=== PATIENT | male | born 1995 | race Caucasian/White ===

== ENCOUNTER 2019-02-11 17:16 | Emergency (ER) | payer OTHER ==
[2019-02-11 17:25] VITALS: BP 143/90
--- NOTE | 2019-02-11 17:51 | EDPHY ---
H & P Stated Complaint: wheezing, recent dx w/bronchitis Time Seen by Provider: 02/11/19 17:38 HPI/ROS: HPI: This is a 23-year-old male who presents with Chief Complaint: Wheezing, recent diagnosis around bronchitis Location: Chest Quality: Wheezing Duration: 1 week ago Signs and Symptoms: no shortness of breath at rest, no shortness of breath on exertion, no cough, no chest pain, no palpitations, no lower extremity edema, no wheezing, no orthopnea, no paroxysmal nocturnal dyspnea, no fever, no injury/ trauma, no hemoptysis, no carpal pedal spasms Timing: Gradual onset, results Severity: Mild Context: Patient reports that he smoked marijuana daily for 1 year in 2017 and then quit for approximately 3 months. He then restarted and noticed that he would have coughing episodes after marijuana use via joint and via Bong. He then only smoked marijuana when he was around his friend's which was once or twice per week. He has never had a history of asthma in the past. Approximately 1 week ago he started to developed wheezing and a dry cough. He went to the urgent care in [place] and had a chest x-ray performed that was unremarkable. He was diagnosed with bronchitis and given 5 days of 20 mg daily. He completed his last dose of steroids yesterday. He reports that all of his shortness of breath, wheezing and dry cough symptoms have resolved. Patient is requesting discussion of marijuana use, reactive airway disease, asthma, bronchitis. Modifying Factors: See above Comment: ROS: A comprehensive 10 system review of systems is otherwise negative aside from elements mentioned in the history of present illness. MEDICAL/SURGICAL/SOCIAL HISTORY: Medical history: Generally healthy. Does not take any regular medications. Surgical history: Denies Social history: Employed. Originally from [place] but has lived in [place] for the last 8 years. Denies tobacco use but uses marijuana quite frequently. CONSTITUTIONAL: Extremely well-appearing young adult white male, polite and cooperative, awake and alert, no obvious distress HEENT: Atraumatic and normocephalic, PERRL, EOMI. Nares patent; no rhinorrhea; no nasal mucosal edema. Tympanic membranes clear. Oropharynx clear, no exudate and moist pink mucosa. Airway patent. No lymphadenopathy. No meningismus. Cardiovascular: Normal S1/S2, regular rate, regular rhythm, without murmur rub or gallop. PULMONARY/CHEST: Symmetrical and nontender. Clear to auscultation bilaterally. Good air movement. No accessory muscle usage. No stridor. No tachypnea. ABDOMEN: Soft, nondistended, nontender, no rebound, no guarding, no peritoneal signs, no masses or organomegaly. No CVAT. EXTREMITIES: 2/2 pulses, strength 5/5, no deformities, no clubbing, no cyanosis or edema. NEUROLOGICAL: no focal neuro deficits. GCS 15. SKIN: Warm and dry, no erythema. no rash. Good capillary refill. Source: Patient Exam Limitations: No limitations - Personal History Current Tetanus/Diphtheria Vaccine: Unsure Current Tetanus Diphtheria and Acellular Pertussis (TDAP): Yes - Medical/Surgical History Hx Asthma: No Hx Chronic Respiratory Disease: No Hx Diabetes: No Hx Cardiac Disease: No Hx Renal Disease: No Hx Cirrhosis: No Hx Alcoholism: No Hx HIV/AIDS: No Hx Splenectomy or Spleen Trauma: No - Social History Smoking Status: Never smoked Constitutional: Initial Vital Signs Temperature (C) 37 C 02/11/19 17:22 Heart Rate 83 02/11/19 17:22 Respiratory Rate 16 02/11/19 17:22 Blood Pressure 143/90 H 02/11/19 17:22 O2 Sat (%) 96 02/11/19 17:22 O2 Delivery Mode Room Air,CPAP Allergies/Adverse Reactions: No Known Allergies Allergy (Unverified 02/11/19 17:22) Home Medications: Medication Instructions Recorded Albuterol Sulfate [Proair Hfa] 1 - 2 puffs IH Q4 PRN #1 [email or web address] 02/11/19 Prednisone 02/11/19 Medical Decision Making ED Course/Re-evaluation: Vital signs reviewed and show mildly elevated blood pressure upon arrival but no tachypnea, no tachycardia, no hypoxia. Lung exam is essentially benign. He completed day 5 of steroid burst today for bronchitis diagnosed at [facility] via chest x-ray. I suspect that patient has reactive airway disease. Long discussion at bedside regarding pathophysiology of reactive airway disease and association with marijuana and tobacco use. Patient has no signs of asthma exacerbation, respiratory distress, sepsis. Wells criteria is low risk for pulmonary embolism. Prescription for albuterol inhaler provided. This patient was seen under the supervision of my secondary supervising physician. I evaluated and cared for this patient independently. Differential Diagnosis: Shortness of breath including but not limited to pulmonary infectious process, COPD, asthma, pulmonary embolus and congestive heart failure. Departure - Departure Disposition: Home, Routine, Self-Care Clinical Impression: Marijuana use RAD (reactive airway disease) Qualifiers: Asthma severity: mild Asthma persistence: intermittent Asthma complication type : uncomplicated Qualified Code(s): J45.20 - Mild intermittent asthma, uncomplicated Condition: Good Instructions: Reactive Airways Disease (ED), Albuterol (By breathing) Additional Instructions: Please consider tobacco and marijuana cessation. Use albuterol inhaler 1-2 puffs every 4-6 hours as needed for shortness of breath, wheezing. Return to the ER immediately if you experience fevers/chills, shortness of breath, abdominal pain, inability to tolerate oral intake, or any other symptoms that concern you. Referrals: [facility],. [Clinic] - As per Instructions Prescriptions: Albuterol Sulfate [Proair Hfa] 1 - 2 puffs IH Q4 PRN #1 [email or web address] PRN Reason: Short Of Breath/Dyspnea
== END 2019-02-11 18:06 | disposition home or self-care (01) ==
DX: J45.20 Mild intermittent asthma, uncomplicated (principal); F12.90 Cannabis use, unspecified, uncomplicated